=== PATIENT | female | born 1955 | race Caucasian/White ===

== ENCOUNTER 2019-05-19 15:08 | Emergency (ER) | payer OTHER ==
[~2019-05-19] VITALS: Ht 149.9 cm; Wt 53.1 kg
[~2019-05-19 15:08] MED LIST: COR12.5; COR25; [UNRECOGNIZED DRUG - OTHER]
[2019-05-19 15:10] VITALS: BP_SYST 143
--- NOTE | 2019-05-19 15:10 | NUR ---
Patient triaged and placed in waiting room. VSS and patient appears in no acute distress at this time. Accompanied by SPOUSE, awaiting available bed, and MD notified of need for MSE.
[2019-05-19 16:05] LABS: BASOPHILS % (AUTO) 0.2 % (0.0-2.0); EOSINOPHILS % (AUTO) 0.1 % (0.0-4.0); HEMATOCRIT 39.8 % (36-48); HEMOGLOBIN 13.2 g/dL (12.0-16.0); LYMPHOCYTES # (AUTO) 0.4 K/uL (1.0-5.5); LYMPHOCYTES % (AUTO) 4.5 % (20.5-51.5); MEAN CORPUSCULAR HEMOGLOBIN 30 pg (27-31); MEAN CORPUSCULAR HGB CONC 33 % (32-36); MEAN CORPUSCULAR VOLUME 92 fL (79.0-98.0); MONOCYTES # (AUTO) 0.7 K/uL (0.0-1.0); MONOCYTES % (AUTO) 8.9 % (1.7-9.3); NEUTROPHILS # (AUTO) 7.1 K/uL (1.8-7.7); NEUTROPHILS % (AUTO) 86.3 % (40.0-70.0); PLATELET COUNT (AUTO) 151 K/uL (130-430); RED BLOOD CELL COUNT(AUTO) 4.33 MIL/uL (4.2-6.2); RED CELL DISTRIBUTION WIDTH 13.8 % (9.0-15.0); WHITE BLOOD COUNT (AUTO) 8.2 K/uL (4.8-10.8)
[2019-05-19 16:14] LABS: CALCIUM 10.9 mg/dL (8.4-11.0); CREATININE 1.37 mg/dL (0.55-1.30); POTASSIUM 4.8 mmol/L (3.5-5.1)
[2019-05-19 16:19] LABS: ALBUMIN 3.2 g/dL (3.4-4.8); TOTAL BILIRUBIN 0.8 mg/dL (0.0-1.0)
--- NOTE | 2019-05-19 17:36 | NUR ---
Patient to ER bed 06 to gown for evaluation. Side rails up.
--- NOTE | 2019-05-19 17:45 | NUR ---
Patient presented to ER with abdominal & epigastric pain, and flu-like symptoms.Patient A&Ox4, ambulatory to ER, nausea, emesis x1 today, pain 8/10. SEEN AT [facility] YESTERDAY, TOLD TO COME TO ER FOR ELEVATED LIVER ENZYMES. WENT TO URGENT CARE FOR VOMITING AND FLU LIKE SYMPTOMS prompting ER visit today.
--- NOTE | 2019-05-19 18:40 | NUR ---
ER Dr. Del Rio at bedside examining patient.
--- NOTE | 2019-05-19 18:57 | NUR ---
Patient given written and verbal discharge instructions and verbalizes understanding. ER Dr. Del Rio discussed with patient the results and treatment provided. Patient in stable condition. ID arm band removed. IV catheter removed intact and dressing applied, no active bleeding. Rx of Zofran given. Patient educated on pain management and to follow up with PMD. Pain Scale 0/10. Opportunity for questions provided and answered. Medication side effect fact sheet provided.
[2019-05-19 18:58] VITALS: BP_SYST 140
== END 2019-05-19 18:57 | disposition home or self-care (01) ==
LOC: SED 15:08
DX: R79.89 Other specified abnormal findings of blood chemistry (principal); R11.2 Nausea with vomiting, unspecified; R19.7 Diarrhea, unspecified; I10 Essential (primary) hypertension; Z88.1 Allergy status to other antibiotic agents
CPT/HCPCS: 36415; 76700-TC; 80053; 83690-TC; 85025; 99284

== ENCOUNTER 2022-04-14 06:05 | Day surgery (SDC) | payer OTHER, MEDICARE ==
[~2022-04-14] VITALS: Ht 152.4 cm; Wt 53.1 kg
[2022-04-14] MEDS ORDERED: DEXAMETHASONE SOD PHOSPHATE 4 MG/ML VIAL IVP ONE (08:00)
[2022-04-14] MEDS ORDERED: NS IRRIG SOLN 1000 ML IR ONE (08:00)
[2022-04-14] MEDS ORDERED: PROPOFOL 200MG/ 20ML VIAL (DIPRIVAN) IV ONE (08:00)
[2022-04-14] MEDS ORDERED: OXYTOCIN/0.9 % SODIUM CHLORIDE 20 UNITS/1,000 ML BAG IV ONE (08:00)
[2022-04-14] MEDS ORDERED: LIDOCAINE 1% 10 MG/ML, 20 ML MDV INJ ONE (08:00)
[2022-04-14] MEDS ORDERED: LR 1,000 ML IV.SOLN IV ONE (08:00)
[2022-04-14] MEDS ORDERED: fentaNYL CITRATE/PF 100 MCG/2 ML AMP IVP ONE (08:00)
[2022-04-14] MEDS ORDERED: ONDANSETRON HCL 4 MG/2 ML VIAL IVP ONE (08:00)
[2022-04-14] MEDS ORDERED: SEVOFLURANE 15 MIN GAS INH ONE (08:00)
[2022-04-14] MEDS ORDERED: GLYCOPYRROLATE 0.2 MG/ML VIAL IJ ONE (08:00)
[2022-04-14] MEDS ORDERED: MIDAZOLAM HCL 5 MG/5 ML VIAL IVP ONE (08:00)
[2022-04-14] MEDS ORDERED: NS 1000 ML IV.SOLN IV ONE (08:00)
[2022-04-14] MEDS ORDERED: HYDROmorphone 1 MG/ML INJ. CARTRIDGE IVP PRN ×2 (08:30)
[2022-04-14] MEDS ORDERED: LABETALOL 100 MG/ 20ML VIAL IVP PRN (08:30)
[2022-04-14] MEDS ORDERED: LR 1,000 ML IV SCH (08:30)
[2022-04-14] MEDS ORDERED: MEPERIDINE HCL/PF 25 MG/ML DISP.SYRIN IVP PRN (08:30)
[2022-04-14] MEDS ORDERED: METOCLOPRAMIDE HCL 10 MG/2 ML VIAL IVP PRN (08:30)
[2022-04-14] MEDS ORDERED: hydrALAZINE HCL 20 MG/ML VIAL IVP PRN (08:30)
[2022-04-14] MEDS ORDERED: ACETAMINOPHEN I.V. 1000 MG 100 ML IV ONE (08:34)
[2022-04-14] MEDS: hydrALAZINE HCL 20 MG/ML VIAL ONE ×2 (09:22→09:32)
[2022-04-14] MEDS ORDERED: ONDANSETRON HCL 4 MG/2 ML VIAL IM PRN (09:30)
[2022-04-14] MEDS ORDERED: OXYCODONE/ACETAMINOPHEN 5-325 TABLET PO PRN ×2 (09:30)
[2022-04-14 10:57] VITALS: BP_SYST 140
== END 2022-04-14 11:35 | disposition home or self-care (01) ==
LOC: SDS 06:05 → SMU 06:06 → SDS 11:35
PROVIDERS: ATTEND Obstetrics & Gynecology
DX: N84.0 Polyp of corpus uteri (principal); R93.89 Abnormal findings on diagnostic imaging of other specified body structures; I12.0 Hypertensive chronic kidney disease with stage 5 chronic kidney disease or end stage renal disease; N18.6 End stage renal disease; E78.00 Pure hypercholesterolemia, unspecified; Z79.899 Other long term (current) drug therapy; Z20.822 Contact with and (suspected) exposure to COVID-19
CPT/HCPCS: 36415 ×2; 58558; 88305; 88341; 88342; 88361; 87426; U0003; J1100; J3490; J0360; J2001; J2250; J2405; J2704; J3010; J7120; J7030; J2590; C1819; J0131

== ENCOUNTER 2022-08-14 12:05 | Outpatient (CLI) | payer OTHER, MEDICARE | END 2022-08-14 17:09 | disposition home or self-care (01) | LOC: SRD 12:05 | PROVIDERS: ATTEND Specialist | DX: R05.3 Chronic cough (principal); I70.0 Atherosclerosis of aorta; M40.294 Other kyphosis, thoracic region; M47.814 Spondylosis without myelopathy or radiculopathy, thoracic region | CPT/HCPCS: 71046-TC ==

== ENCOUNTER 2023-12-16 11:04 | Outpatient (CLI) | payer OTHER, MEDICARE ==
[2023-12-16 11:54] LABS: BILIRUBIN,URINE NEGATIVE (NEGATIVE); BLOOD, URINE NEGATIVE (NEGATIVE); CLARITY/URINE CLEAR (CLEAR); COLOR,URINE YELLOW (YELLOW); GLUCOSE,URINE NEGATIVE (NEGATIVE); KETONES,URINE NEGATIVE (NEGATIVE); LEUKOCYTE ESTERASE ,URINE NEGATIVE (NEGATIVE); NITRITE, URINE NEGATIVE (NEGATIVE); PROTEIN URINE NEGATIVE (NEGATIVE); UROBILINOGEN,URINE 0.2 (0.2-1.0)
[2023-12-16 12:16] LABS: ALBUMIN 3.4 g/dL (3.4-4.8); CREATININE 0.75 mg/dL (0.55-1.30); PHOSPHORUS 2.5 mg/dL (2.7-4.5); POTASSIUM 3.9 mmol/L (3.5-5.1); TOTAL BILIRUBIN 0.7 mg/dL (0.0-1.0); TOTAL PROTEIN, SERUM 6.8 g/dL (6.4-8.3)
[2023-12-16 12:18] LABS: BASOPHILS % (AUTO) 0.3 % (0.0-2.0); EOSINOPHILS % (AUTO) 0.8 % (0.0-4.0); HEMATOCRIT 39.7 % (36-48); HEMOGLOBIN 13.4 g/dL (12.0-16.0); LYMPHOCYTES # (AUTO) 0.7 K/uL (1.0-5.5); LYMPHOCYTES % (AUTO) 11.2 % (20.5-51.5); MEAN CORPUSCULAR HEMOGLOBIN 30 pg (27-31); MEAN CORPUSCULAR HGB CONC 34 % (32-36); MEAN CORPUSCULAR VOLUME 89 fL (79.0-98.0); MONOCYTES # (AUTO) 0.7 K/uL (0.0-1.0); MONOCYTES % (AUTO) 12.5 % (1.7-9.3); NEUTROPHILS # (AUTO) 4.4 K/uL (1.8-7.7); NEUTROPHILS % (AUTO) 75.2 % (40.0-70.0); PLATELET COUNT (AUTO) 147 K/uL (130-430); RED BLOOD CELL COUNT(AUTO) 4.47 MIL/uL (4.2-6.2); RED CELL DISTRIBUTION WIDTH 14.3 % (9.0-15.0); WHITE BLOOD COUNT (AUTO) 5.9 K/uL (4.8-10.8)
== END 2023-12-16 18:29 | disposition home or self-care (01) ==
LOC: SLB 11:04
PROVIDERS: ATTEND Specialist
DX: I10 Essential (primary) hypertension (principal); R80.9 Proteinuria, unspecified; Z94.0 Kidney transplant status
CPT/HCPCS: 36415; 80053; 80197; 81001; 81003; 82043; 82570; 83735; 84100; 85025